=== PATIENT | female | born 1985 | race Caucasian/White ===

== ENCOUNTER → 2020-09-13 | Outpatient (CLI) | payer BC, SELFPAY ==
--- NOTE | 2020-09-14 10:26 | US ---
EXAM DESCRIPTION: Chest: ULTRASOUND. CLINICAL HISTORY: 34 years Female LUMP LEFT AXILLARY AREA. Small lump. Several months. Stable size. COMPARISON: None Available. TECHNIQUE: Transcutaneous scanning: Ann-scale and Doppler modes. FINDINGS: Left axilla and upper chest scan. Subcutaneous adipose tissue is unremarkable. Chest wall muscle and fascia are unremarkable. No dominant solid mass, no distinct status, no fluid collection, and no large calcifications. IMPRESSION: Normal sonographic findings, with no evidence for chest wall mass. Electronically signed by: Simeon Davis MD 09/14/2020 10:25 AM [facility]
== END ==
LOC: US 15:05
PROVIDERS: ATTEND Nurse Practitioner Acute Care
DX: N63.0 Unspecified lump in unspecified breast (principal)